=== PATIENT | male | born 1965 | race Caucasian/White ===

== ENCOUNTER 2020-04-21 13:17 | Day surgery (SDC) | payer BC ==
[~2020-04-21 13:17] MED LIST: Lactated Ringers 1,000 ML IV SCH
--- NOTE | 2020-04-21 14:11 | PCM.PREANE ---
Preanesthetic Assessment - Anesthesia/Transfusion/Family Hx Anesthesia History: Prior Anesthesia Without Reaction Family History of Anesthesia Reaction: No Transfusion History: No Prior Transfusion(s) Intubation History: Unknown - Review of Systems General: No Symptoms Pulmonary: No Symptoms Cardiovascular: No Symptoms Gastrointestinal: No Symptoms, Other (h/o colon cancer 2017) Neurological: No Symptoms Other: Reports: None - Physical Assessment NPO Status Date: 04/21/20 NPO Status Time: 10:00 Vital Signs: Last Vital Signs Temp 35.9 C L 04/21/20 13:25 Pulse 60 04/21/20 13:25 Resp 18 04/21/20 13:25 BP 142/88 H 04/21/20 13:25 Pulse Ox 97 04/21/20 13:25 Height: 6 ft Weight: 151.953 kg ASA Class: 3 Mental Status: Alert & Oriented x3 Airway Class: Mallampati = 2 Dentition: Reports: Normal Dentition Thyro-Mental Finger Breadths: 3 Mouth Opening Finger Breadths: 3 ROM/Head Extension: Full Lungs: Clear to Auscultation, Normal Respiratory Effort Cardiovascular: Regular Rate, Regular Rhythm - Allergies Allergies/Adverse Reactions: Allergies Allergy/AdvReac Type Severity Reaction Status Date / Time No Known Allergies Allergy Verified 04/16/20 12:47 - Blood Blood Available: No - Anesthesia Plan Pre-Op Medication Ordered: None - Acknowledgements Anesthesia Type Planned: MAC Pt an Appropriate Candidate for the Planned Anesthesia: Yes Alternatives and Risks of Anesthesia Discussed w Pt/Guardian: Yes Pt/Guardian Understands and Agrees with Anesthesia Plan: Yes PreAnesthesia Questionnaire HEENT History: Reports: None Cardiovascular History: Reports: High Cholesterol (borderline), Hypertension Respiratory History: Reports: None Gastrointestinal History: Reports: Bowel Obstruction, Diverticulosis, Other ( See Below) (h/o colon cancer '17 with colon resection and chemo therapy, ok now) Other Gastrointestinal History: occasional heartburn Genitourinary History: Reports: None Musculoskeletal History: Reports: None Neurological History: Reports: None Psychiatric History: Reports: None Endocrine/Metabolic History: Reports: Obesity/BMI 30+ (BMI 45.4) Hematologic History: Reports: None Immunologic History: Reports: None Oncologic (Cancer) History: Reports: Colon Dermatologic History: Reports: None - Past Surgical History Head Surgeries/Procedures: Reports: None HEENT Surgical History: Reports: Other (See Below) Other HEENT Surgeries/Procedures: surgery on eye when patient was young child Cardiovascular Surgical History: Reports: None, Other (See Below) Respiratory Surgical History: Reports: None GI Surgical History: Reports: Colon, Colonoscopy Other GI Surgeries/Procedures: had colon resection for cancer Male Surgical History: Reports: None Endocrine Surgical History: Reports: None Neurological Surgical History: Reports: None Musculoskeletal Surgical History: Reports: Arthroscopic Knee Oncologic Surgical History: Reports: Other (See Below) Other Oncologic Surgeries/Procedures: colon resection, estuardo cath placement and removal - SUBSTANCE USE Smoking Status *Q: Never Smoker Recreational Drug Use History: No - HOME MEDS Home Medications: Home Meds Metoprolol Tartrate 75 mg PO BID 02/24/17 [History] Multivitamin [Multivitamins] 1 tab PO DAILY 04/11/18 [History] Calcium Carbonate [Tums] 1 tab.chew CHEW ASDIRECTED PRN 04/17/20 [History] - CURRENT (IN HOUSE) MEDS Current Meds: Current Medications Lactated Ringer's (Ringers, Lactated) 1,000 mls @ 125 mls/hr IV ASDIRECTED [facility] Last Admin: 04/21/20 13:43 Dose: 125 mls/hr
[2020-04-21] MEDS ORDERED: Propofol 200 MG/20 ML SDV ONE (14:24)
[2020-04-21] MEDS ORDERED: Midazolam 1 MG/ML 2 ML SDV ONE (14:24)
--- NOTE | 2020-04-21 15:20 | PCM.OPNOTE ---
- General Post-Op/Procedure Note Date of Surgery/Procedure: 04/21/20 Operative Procedure(s): Colonoscopy Pre Op Diagnosis: Personal history of colon cancer, status post right hemicolectomy Post-Op Diagnosis: No evidence of neoplasia Anesthesia Technique: MAC (ASA III) Primary Surgeon: Harsh Gr Condition: Good Free Text/Narrative:: DICTATION [id number] CPT CODE 50713
[2020-04-21] MEDS ORDERED: Lactated Ringers 1,000 ML IV SCH (15:30)
[2020-04-21 15:33] VITALS: BP 135/76; PULSE 59
--- NOTE | 2020-04-21 15:40 | PCM.POSTAN ---
POST ANESTHESIA ASSESSMENT - MENTAL STATUS Mental Status: Alert, Oriented - VITAL SIGNS Vital Signs: Last Vital Signs Temp 37.4 C 04/21/20 15:28 Pulse 59 L 04/21/20 15:28 Resp 16 04/21/20 15:28 BP 135/76 04/21/20 15:28 Pulse Ox 95 04/21/20 15:28 - RESPIRATORY Respiratory Status: Respiratory Rate WNL, Airway Patent, O2 Saturation Stable - CARDIOVASCULAR CV Status: Pulse Rate WNL, Blood Pressure Stable - GASTROINTESTINAL GI Status: No Symptoms - PAIN Pain Score: 0 - POST OP HYDRATION Hydration Status: Adequate & Stable - OBSERVATIONS Free Text/Narrative:: No anesthesia problems.
--- NOTE | 2020-04-21 15:42 | PCM48HPAN ---
Post Anesthesia Note - EVALUATION WITHIN 48HRS OF ANESTHETIC Vital Signs in Normal Range: Yes Patient Participated in Evaluation: Yes Respiratory Function Stable: Yes Airway Patent: Yes Cardiovascular Function Stable: Yes Hydration Status Stable: Yes Pain Control Satisfactory: Yes Nausea and Vomiting Control Satisfactory: Yes Mental Status Recovered: Yes Vital Signs: Last Vital Signs Temp 37.4 C 04/21/20 15:28 Pulse 59 L 04/21/20 15:28 Resp 16 04/21/20 15:28 BP 135/76 04/21/20 15:28 Pulse Ox 95 04/21/20 15:28 - COMMENTS/OBSERVATIONS Free Text/Narrative:: No anesthesia problems
--- NOTE | 2020-04-21 15:47 | OR ---
SURGEON: Harsh Gr M.D. DATE OF PROCEDURE: 04/21/2020 OPERATION PERFORMED: Colonoscopy. PRIMARY SURGEON: Harsh Gr MD ANESTHESIA: MAC. ASA CLASSIFICATION: III. PREOPERATIVE DIAGNOSIS: Personal history of colon cancer, status post right hemicolectomy. POSTOPERATIVE DIAGNOSIS: No evidence of neoplasia. DESCRIPTION OF PROCEDURE: The patient was taken to the endoscopy room and positioned on the endoscopy table in the left lateral decubitus position. Time-out was called for appropriate identification of the patient and procedure. Monitored anesthesia care was provided. The colonoscope was inserted into the rectum and advanced with minimal difficulty to the anastomosis in the transverse colon. The anastomosis was widely patent, and I was able to cannulate the terminal ileum. No acute pathologic changes were noted and the anastomosis was widely patent with no evidence of polyps or recurrent disease. The colonoscope was then slowly withdrawn. The prep was excellent. The transverse colon, splenic flexure, descending colon, sigmoid colon, and rectum were very well visualized. No tumors, polyps, diverticula, or angiodysplastic changes were noted anywhere in the lower gastrointestinal tract. The colonoscope was withdrawn to the rectum and retroflexed to visualize the anal orifice from above. No tumors or polyps were seen and there were no acute hemorrhoidal changes. The colonoscope was then straightened, the rectum aspirated, and the colonoscope removed. The patient tolerated the procedure well and was taken to recovery room in satisfactory condition. VICTORINA / GWYN /[id number]
== END 2020-04-21 15:48 | disposition home or self-care (01) ==
LOC: MW.SDS 13:17
PROVIDERS: ATTEND Surgery
DX: Z12.11 Encounter for screening for malignant neoplasm of colon (principal); K21.9 Gastro-esophageal reflux disease without esophagitis; I10 Essential (primary) hypertension; E78.1 Pure hyperglyceridemia; E66.01 Morbid (severe) obesity due to excess calories; Z79.899 Other long term (current) drug therapy; Z87.891 Personal history of nicotine dependence; Z90.49 Acquired absence of other specified parts of digestive tract; Z80.0 Family history of malignant neoplasm of digestive organs; Z85.038 Personal history of other malignant neoplasm of large intestine; Z68.42 Body mass index [BMI] 45.0-49.9, adult
CPT/HCPCS: 45378; J2250; J2704; J7120; 00811